=== PATIENT | female | born 1965 | race Caucasian/White ===

== ENCOUNTER 2021-02-27 14:47 | Outpatient (CLI) | payer BC | END 2021-02-27 14:48 | disposition home or self-care (01) | LOC: CSHMAMMO 14:47 | PROVIDERS: ATTEND Obstetrics & Gynecology | DX: Z12.31 Encounter for screening mammogram for malignant neoplasm of breast (principal) | CPT/HCPCS: 77063; 77067 ==

== ENCOUNTER 2022-03-22 11:57 | Outpatient (CLI) | payer BC | END 2022-03-22 11:58 | disposition home or self-care (01) | LOC: CSHMAMMO 11:57 | PROVIDERS: ATTEND Obstetrics & Gynecology | DX: Z12.31 Encounter for screening mammogram for malignant neoplasm of breast (principal) | CPT/HCPCS: 77063; 77067 ==

== ENCOUNTER 2023-09-11 09:40 | Outpatient (CLI) | payer BC | END 2023-09-11 09:41 | disposition home or self-care (01) | LOC: CSHMAMMO 09:40 | PROVIDERS: ATTEND Obstetrics & Gynecology | DX: Z12.31 Encounter for screening mammogram for malignant neoplasm of breast (principal) | CPT/HCPCS: 77063; 77067 ==